=== PATIENT | female | born 1995 ===

== ENCOUNTER 2023-10-10 17:53 | Inpatient (IN) | payer OTHER, SELFPAY ==
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
[2023-10-10 19:12] VITALS: BP 149/98; PULSE 80; RESP 18; TEMP 36.6; O2SAT 99
[2023-10-10] MEDS: hydrOXYzine HCL 25 MG TABLET PO (19:27)
[2023-10-10 20:14] VITALS: BMI 26.0
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
--- NOTE | 2023-10-10 21:44 | P.CONHOSP_ITS ---
History of Present Illness Data of Consult Service Date: 10/10/23 Requesting physician: Priya Norris Primary Care Provider: Unknown Physician HPI Reason for consult: medical H&P 27-year-old female without any significant past medical history admitted to Psychiatry from [facility] ED with consult placed to hospitalist service for medical H& P. The patient endorses occasional marijuana use but denies any illicit drug use, alcohol use, or current cigarette smoking. She is a former smoker who quit 4 months ago. She currently has no complaints except feeling slightly jittery which she attributes to her anxiety. While in the ED, EKG showed NSR, rate 80 without any acute ischemic changes. Hematology studies unremarkable. Renal function and electrolyte levels normal. Hepatic function within normal limits. TSH normal. Negative for COVID-19, influenza, flu. Ethyl alcohol level undetectable. On arrival slightly hypertensive to 149/98, likely r/t anxiety, has no history of htn. Vitals otherwise wnl. Review of Systems Review of Systems: General: No fevers, malaise, unintentional weight loss HEENT: No blurred vision, diplopia. No sore throat, nasal congestion, rhinorrhea, sinus pain, ear pain Cardiovascular: No chest pain, palpitations, or leg edema Respiratory: No shortness of breath, wheezing, cough GI: No abdominal pain, nausea, vomiting, diarrhea, constipation, melena, hematochezia : No dysuria, hematuria, increased urinary frequency, decreased urinary output MSK: No myalgia, back pain Neuro: No headaches, weakness, paresthesias Psych: +anxiety Skin: No rashes or lesions [facility] Medical History (Updated 10/10/23 @ 21:49 by RONNA Jay) No pertinent past medical history Social History Household Members: Other Household Members Other:: Girlfriend Housing: Apartment Do you presently have visiting nurse or other home services: No Patient Tobacco Use Status: Former Tobacco user Tobacco use type: Cigarette Smoked in Last 30 Days: No e-Cigarette/Vaping Use: Former Use Patient Interested in Nicotine Replacement: No Patient Given Instructions on How to Stop Smoking: No Second Hand Smoke Exposure: No Use of substances other than those prescribed or required for medical reasons: Yes Substance Use Type: Marijuana Substance Use Frequency: Daily Last Used Substance: Unknown Currently Displaying Signs/Symptoms of Drug Intoxication Withdrawal: No Any prior treatment program specific to substance use: No Do you feel safe in your current relationship?: No Is there a partner from a previous relationship who is making you feel unsafe now?: No Are you made to feel afraid or neglected: No Spiritual Healthcare Practices: None Reported Scientology Healthcare Practices: None Reported Cultural Healthcare Practices: None Reported Advance Directives: No Advance Directives Information Provided: Yes Do you have thoughts of harming others: None Do you have a plan to hurt others: No Plan Recently lost weight without trying: No How much weight loss: Not applicable Eating poorly because of decreased appetite: No Nutrition screen score: 0 Nutrition Risks: No Nutritional Risk Patient : No : No Poor oral hygiene: No Meds Allergies Allergy/AdvReac Type Severity Reaction Status Date / Time No Known Allergies Allergy Verified 10/10/23 19:07 Active Medications: Current Medications Acetaminophen (Acetaminophen 325 Mg Tablet) 650 mg PO Q6H PRN PRN Reason: Headache/Pain Mild Scale (1-3) Al Hydroxide/Mg Hydroxide (Magnesium Hydrox/Alum Hydrox 30 Ml Oral.Susp) 30 ml PO Q6H PRN PRN Reason: Heartburn/Nausea Clonazepam (Clonazepam 0.5 Mg Tablet) 0.5 mg PO DAILY PRN PRN Reason: anxiety/sleep Divalproex Sodium (Divalproex Sodium 250 Mg Tablet.Dr) 250 mg PO BID POLO Fluoxetine HCl (Fluoxetine Hcl 20 Mg Capsule) 40 mg PO DAILY POLO Magnesium Hydroxide (Milk Of Magnesia 30 Ml Oral.Susp) 30 ml PO DAILY PRN PRN Reason: Constipation Mirtazapine (Mirtazapine 15 Mg Tablet) 15 mg PO BEDTIME POLO Trazodone HCl (Trazodone Hcl 50 Mg Tablet) 50 mg PO BEDTIME PRN PRN Reason: Insomnia Home Medications Medication Instructions Recorded Confirmed Last Taken Type clonazepam 0.5 mg tablet 0.5 mg PO NEEDED PRN Anxiety 10/10/23 10/10/23 Unknown History divalproex 250 mg tablet,delayed 250 mg PO BID 10/10/23 10/10/23 Unknown History release fluoxetine 40 mg capsule 40 mg PO DAILY 10/10/23 10/10/23 Unknown History mirtazapine 15 mg tablet 22.5 mg PO BEDTIME 10/10/23 10/10/23 Unknown History Physical Exam Vital Signs and Narrative: Vital Signs: Last Vital Signs Temp 97.9 F 10/10/23 19:12 Pulse 80 10/10/23 19:12 Resp 18 10/10/23 19:12 BP 149/98 H 10/10/23 19:12 Pulse Ox 99 10/10/23 19:12 O2 Del Method Room Air 10/10/23 19:12 BMI result Body Mass Index 26.0 Constitutional - Awake and Alert, No apparent distress Eyes - PERRLA, EOMI Cardiovascular - S1S2, RRR, No edema Respiratory - Normal lung expansion, Normal respiratory effort, No respiratory distress, CTA bilaterally Gastrointestinal - NT / ND; +BS; No rebound or guarding Extremities - no calf tenderness bilaterally, no swelling Musculoskeletal - Normal inspection, normal ROM Skin - Warm/Dry Neurological - Alert & oriented x3, CN II-XII in tact, 5/5 strength BUE and BLE Psychological - Appropriate affect Assessment and Plan (1) Routine medical exam: Status: Acute Plan 27-year-old female without any significant past medical history admitted to Psychiatry from [facility] ED with consult placed to hospitalist service for medical H& P. #Mood disorder -plan per psych No significant PMH. No acute medical issues at time of examination. ED report reviewed as above. Thank you for allowing me to participate in this consult. Signing off at this time. Please do not hesitate to call for further questions or for any acute medical issues.
[2023-10-10] MEDS: Divalproex Sodium 250 MG TABLET.DR PO (22:18)
[2023-10-10] MEDS: traZODone HCL 50 MG TABLET PO ×2 (22:18→23:36)
[2023-10-10] MEDS: Mirtazapine 15 MG TABLET PO (22:19)
[2023-10-11] MEDS: clonazePAM 0.5 MG TABLET PO (04:27)
[2023-10-11] MEDS: Acetaminophen 325 MG TABLET 650 MG PO ×2 (05:06→20:37)
[2023-10-11 07:58] VITALS: BP 121/61; PULSE 71; RESP 18; TEMP 36.9; O2SAT 97
[2023-10-11] MEDS: FLUoxetine HCl 20 MG CAPSULE 40 MG PO (08:25)
[2023-10-11] MEDS: Divalproex Sodium 250 MG TABLET.DR PO (08:26)
[2023-10-11 08:54] LABS: Estimated Average Glucose 94 mg/dL; Hemoglobin A1c % 4.9 % (<6.0)
[2023-10-11 09:12] LABS: Alanine Aminotransferase 19 U/L (0-31); Albumin Level 4.2 g/dL (3.5-5.0); Alkaline Phosphatase 71 U/L (39-117); Anion Gap 10 (12-20); Aspartate Amino Transferase 39 U/L (5-31); Bilirubin Total 0.3 mg/dL (0.0-1.0); Blood Urea Nitrogen 9 mg/dL (9-16); Calcium 9.8 mg/dL (8.4-10.2); Carbon Dioxide 24 mmol/L (22-29); Chloride 107 mmol/L (96-108); Cholesterol 178 mg/dL (<200); Creatinine Clr Calc Pharmacy 94.4; Estimated Glomerular Filt Rate > 60; Glucose Fasting 108 mg/dL (60-99); HDL Cholesterol 41 mg/dL (>40); LDL Cholesterol Calculated 121 mg/dL (<100); Potassium 4.1 mmol/L (3.3-5.1); Sodium 137 mmol/L (135-145); Total Protein 7.4 g/dL (6.5-8.0); Triglycerides 84 mg/dL (<150)
[2023-10-11 09:33] LABS: Thyroid Stimulating Hormone 0.81 uIU/mL (0.32-4.0)
[2023-10-11 09:37] LABS: Folate 13.5 ng/mL (> or = 4.0); Vitamin B12 654 pg/mL (200-900)
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
[2023-10-11] MEDS: cloNIDine HCL 0.1 MG TABLET PO (15:40)
[2023-10-11 15:47] VITALS: BP 137/77; PULSE 70; RESP 16; TEMP 36.7; O2SAT 97
[2023-10-11] MEDS: Lithium Carbonate ER 300 MG TABLET.ER 600 MG PO (20:49)
[2023-10-11] MEDS: OLANZapine 10 MG TABLET PO (20:49)
[2023-10-11] MEDS: Divalproex Sodium 500 MG TABLET.DR PO (20:49)
[2023-10-11] MEDS: Mirtazapine 7.5 MG TABLET 22.5 MG PO (20:50)
[2023-10-12] MEDS: clonazePAM 0.5 MG TABLET PO (01:51)
[2023-10-12] MEDS: traZODone HCL 50 MG TABLET PO (01:51)
[2023-10-12] MEDS: Acetaminophen 325 MG TABLET 650 MG PO (08:04)
[2023-10-12] MEDS: FLUoxetine HCl 20 MG CAPSULE 40 MG PO (08:04)
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
[2023-10-12 10:30] VITALS: BP 134/85; PULSE 85; RESP 18; TEMP 36.4; O2SAT 98
[2023-10-12] MEDS: cloNIDine HCL 0.1 MG TABLET PO ×2 (10:31→14:34)
[2023-10-12] MEDS: Ibuprofen 600 MG TABLET PO (10:47)
[2023-10-12 14:36] VITALS: BP 149/89; PULSE 77
[2023-10-12 15:45] VITALS: BP 108/65; PULSE 66; TEMP 36.4; O2SAT 99
[2023-10-12] MEDS: Lithium Carbonate ER 300 MG TABLET.ER 600 MG PO (21:15)
[2023-10-12] MEDS: Divalproex Sodium 500 MG TABLET.DR PO (21:15)
[2023-10-12] MEDS: Mirtazapine 7.5 MG TABLET 22.5 MG PO (21:15)
[2023-10-12] MEDS: OLANZapine 10 MG TABLET PO (21:16)
[2023-10-13] MEDS: clonazePAM 0.5 MG TABLET PO (03:35)
[2023-10-13 07:00] VITALS: BMI 26.4
[2023-10-13] MEDS: FLUoxetine HCl 20 MG CAPSULE 40 MG PO (08:20)
[2023-10-13 09:43] VITALS: BP 121/82; PULSE 78; RESP 18; TEMP 36.8; O2SAT 98
[2023-10-13] MEDS: cloNIDine HCL 0.1 MG TABLET PO ×2 (11:40→20:04)
[2023-10-13 11:43] VITALS: BP 136/83; PULSE 72
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
[2023-10-13] MEDS: OLANZapine 5 MG TABLET PO (17:16)
[2023-10-13 18:00] VITALS: BP 118/71; PULSE 65; TEMP 36.7; O2SAT 98
[2023-10-13] MEDS: traZODone HCL 50 MG TABLET PO (21:46)
[2023-10-13] MEDS: Mirtazapine 7.5 MG TABLET 22.5 MG PO (21:46)
[2023-10-13] MEDS: Lithium Carbonate ER 300 MG TABLET.ER 600 MG PO (21:46)
[2023-10-13] MEDS: OLANZapine 10 MG TABLET PO (21:46)
[2023-10-14 08:00] VITALS: BP 131/80; PULSE 76; RESP 16; TEMP 36.9; O2SAT 98
[2023-10-14] MEDS: FLUoxetine HCl 20 MG CAPSULE 40 MG PO (09:01)
[2023-10-14] MEDS: cloNIDine HCL 0.1 MG TABLET PO ×2 (09:05→21:15)
[2023-10-14] MEDS: clonazePAM 0.5 MG TABLET PO (14:24)
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
[2023-10-14 18:00] VITALS: BP 137/88; PULSE 71; RESP 16; TEMP 36.6; O2SAT 99
[2023-10-14] MEDS: Mirtazapine 7.5 MG TABLET 22.5 MG PO (21:12)
[2023-10-14] MEDS: OLANZapine 10 MG TABLET PO (21:12)
[2023-10-14] MEDS: Lithium Carbonate ER 300 MG TABLET.ER 600 MG PO (21:13)
[2023-10-14] MEDS: traZODone HCL 50 MG TABLET PO (21:15)
[2023-10-15 08:15] VITALS: BP 127/66; PULSE 60; RESP 16; TEMP 36.9; O2SAT 99
[2023-10-15] MEDS: FLUoxetine HCl 20 MG CAPSULE 40 MG PO (08:25)
[2023-10-15 09:54] VITALS: BP 127/71; PULSE 73
[2023-10-15] MEDS: cloNIDine HCL 0.1 MG TABLET PO ×2 (09:54→17:23)
[2023-10-15] MEDS: Sodium Chloride 0.65 % Nasal 44 ML SPRBTL 1 SPRAY NOSTRIL-B ×3 (11:05→16:06)
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
[2023-10-15] MEDS: Acetaminophen 325 MG TABLET 650 MG PO (13:21)
[2023-10-15 18:00] VITALS: BP 122/74; PULSE 80; RESP 18; TEMP 36.9; O2SAT 99
[2023-10-15] MEDS: Mirtazapine 7.5 MG TABLET 22.5 MG PO (21:36)
[2023-10-15] MEDS: traZODone HCL 50 MG TABLET PO (21:37)
[2023-10-15] MEDS: Lithium Carbonate ER 300 MG TABLET.ER 600 MG PO (21:37)
[2023-10-15] MEDS: OLANZapine 10 MG TABLET PO (21:38)
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
[2023-10-16 08:06] VITALS: BP 120/59; PULSE 55; RESP 16; TEMP 36.6; O2SAT 98
[2023-10-16] MEDS: FLUoxetine HCl 20 MG CAPSULE 40 MG PO (08:39)
[2023-10-16] MEDS: Sodium Chloride 0.65 % Nasal 44 ML SPRBTL 1 SPRAY NOSTRIL-B (08:39)
[2023-10-16] MEDS: cloNIDine HCL 0.1 MG TABLET PO (08:41)
[2023-10-16] MEDS: LORazepam 2 MG/ML VIAL 1 MG IM (11:16)
[2023-10-16] MEDS: OLANZapine 10 MG VIAL 20 MG IM (11:17)
[2023-10-16 11:19] LABS: Blood Urea Nitrogen 11 mg/dL (9-16); Creatinine Clr Calc Pharmacy 85.3; Estimated Glomerular Filt Rate > 60; TSH reflex Free T4 2.11 uIU/mL (0.32-4.0)
[2023-10-16 18:00] VITALS: BP 128/75; PULSE 63; RESP 16; TEMP 36.8; O2SAT 98
[2023-10-16] MEDS: OLANZapine 10 MG TABLET PO (21:06)
[2023-10-16] MEDS: traZODone HCL 50 MG TABLET PO (21:06)
[2023-10-16] MEDS: Lithium Carbonate ER 300 MG TABLET.ER 600 MG PO (21:06)
[2023-10-16] MEDS: clonazePAM 0.5 MG TABLET PO (21:06)
[2023-10-16] MEDS: Mirtazapine 7.5 MG TABLET 22.5 MG PO (21:07)
[2023-10-17] MEDS: Sodium Chloride 0.65 % Nasal 44 ML SPRBTL 1 SPRAY NOSTRIL-B ×4 (03:25→21:04)
[2023-10-17 08:00] VITALS: BP 144/78; PULSE 66; RESP 18; TEMP 36.4; O2SAT 98
[2023-10-17] MEDS: FLUoxetine HCl 20 MG CAPSULE 40 MG PO (08:12)
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
[2023-10-17] MEDS: clonazePAM 0.5 MG TABLET PO (12:09)
[2023-10-17 17:27] VITALS: BP 132/73; PULSE 66; RESP 18
[2023-10-17] MEDS: OLANZapine 5 MG TABLET PO (17:30)
[2023-10-17] MEDS: cloNIDine HCL 0.1 MG TABLET PO ×2 (17:30→21:48)
[2023-10-17 20:13] VITALS: BP 150/83; PULSE 71; RESP 16; TEMP 36.8; O2SAT 99
[2023-10-17] MEDS: Mirtazapine 7.5 MG TABLET 22.5 MG PO (21:02)
[2023-10-17] MEDS: Lithium Carbonate ER 300 MG TABLET.ER 600 MG PO (21:02)
[2023-10-17] MEDS: OLANZapine 10 MG TABLET PO (21:02)
[2023-10-17] MEDS: traZODone HCL 50 MG TABLET PO (21:03)
[2023-10-18] MEDS: Sodium Chloride 0.65 % Nasal 44 ML SPRBTL 1 SPRAY NOSTRIL-B (05:41)
[2023-10-18] MEDS: FLUoxetine HCl 20 MG CAPSULE 40 MG PO (08:40)
[2023-10-18 08:53] VITALS: BP 136/69; PULSE 59; RESP 16; TEMP 37.2; O2SAT 98
[2023-10-18] MEDS: cloNIDine HCL 0.1 MG TABLET PO (09:41)
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
== END 2023-10-18 10:56 | disposition home or self-care (01) | DRG 753 ==
PROVIDERS: Social Worker; Admitting Provider Psychiatry & Neurology Psychiatry; Visit Provider Psychiatry & Neurology Psychiatry
DX: F31.9 Bipolar disorder, unspecified (principal); R45.851 Suicidal ideations; F63.81 Intermittent explosive disorder; F40.01 Agoraphobia with panic disorder; F43.10 Post-traumatic stress disorder, unspecified; Z87.891 Personal history of nicotine dependence; Z79.899 Other long term (current) drug therapy
CPT/HCPCS: 36415; 73130; 80053; 80061; 80178; 82565; 82607; 82746; 83036; 84443; 84520; J2060; J2359

== ENCOUNTER → 2023-10-10 17:53 | Outpatient (BNV) | payer OTHER, SELFPAY | PROVIDERS: Admitting Provider Psychiatry & Neurology Psychiatry; Visit Provider Physician Assistant | DX: Z02.2 Encounter for examination for admission to residential institution (principal) | CPT/HCPCS: 99429 ==

== ENCOUNTER → 2023-10-10 17:53 | Outpatient (BNV) | payer OTHER, SELFPAY | PROVIDERS: Admitting Provider Psychiatry & Neurology Psychiatry; Visit Provider Psychiatry & Neurology Psychiatry | DX: F31.4 Bipolar disorder, current episode depressed, severe, without psychotic features (principal); F43.11 Post-traumatic stress disorder, acute; F63.81 Intermittent explosive disorder; F40.01 Agoraphobia with panic disorder | CPT/HCPCS: 99231; 99232 ==